=== PATIENT | female | born 1940 | race Caucasian/White ===

== ENCOUNTER 2022-04-08 01:14 | Emergency (ER) | payer MEDICARE, BC ==
[2022-04-08] MEDS ORDERED: Acetaminophen/HYDROcodone 325-5 MG Tab PO ONE (01:15)
[2022-04-08] MEDS: Acetaminophen 325 MG Tab PO ONE (04:30)
== END 2022-04-08 04:40 | disposition home or self-care (01) ==
LOC: FB.ED 01:14
DX: S22.42XA Multiple fractures of ribs, left side, initial encounter for closed fracture (principal); Z79.899 Other long term (current) drug therapy; W01.198A Fall on same level from slipping, tripping and stumbling with subsequent striking against other object, initial encounter
CPT/HCPCS: 36415; 71250; 80053; 85025; 94150; 99282; 99284-25; A9270-GY